=== PATIENT | female | born 1980 | race Caucasian/White ===

== ENCOUNTER 2017-03-21 10:43 | Emergency (ER) | payer OTHER ==
[~2017-03-21] VITALS: Ht 170.2 cm; Wt 123.4 kg
[2017-03-21 12:30] VITALS: BP 140/87
== END 2017-03-21 12:30 | disposition home or self-care (01) ==
LOC: ED 10:43
DX: G89.29 Other chronic pain (principal); M54.9 Dorsalgia, unspecified; R03.0 Elevated blood-pressure reading, without diagnosis of hypertension; M54.31 Sciatica, right side; J45.909 Unspecified asthma, uncomplicated
CPT/HCPCS: J3010